=== PATIENT | male | born 1940 | race Caucasian/White ===

== ENCOUNTER 2016-03-03 13:52 | Emergency (ER) | payer BC ==
[~2016-03-03] VITALS: Ht 182.9 cm; Wt 95.3 kg
[~2016-03-03 13:52] MED LIST changes: -AMLO-110 PO; -FERROUS SULFATE PO; -FLM4 PO; -FLV1 PO; -LVMI SC; -NIZA150C3 PO; -RAMI10CA PO; -SERT50TA PO
[2016-03-03 13:57] VITALS: TEMP 36.4; Ht 182.9 cm; Wt 95.3 kg
[2016-03-03] MEDS ORDERED: NIZA150C3 PO (14:35)
[2016-03-03] MEDS ORDERED: RAMI10CA PO (14:35)
[2016-03-03] MEDS ORDERED: FERROUS SULFATE PO (14:35)
[2016-03-03] MEDS ORDERED: AMLO-110 PO (14:35)
[2016-03-03] MEDS ORDERED: LVMI SC (14:35)
[2016-03-03] MEDS ORDERED: FLV1 PO (14:35)
[2016-03-03] MEDS ORDERED: SERT50TA PO (14:35)
[2016-03-03] MEDS ORDERED: SODIUM CHLORIDE 0.9% 1000ML 1,000 ML IV STA (15:09)
--- NOTE | 2016-03-03 15:15 | EMERGENCY ROOM VISIT NOTE ---
History Report prepared by Fina: Christina Rodriguez Under the Supervision of: Dr. Deirdre Vanegas M.D. First contact with patient: 14:45 Chief Complaint: GI ASSESSMENT Stated Complaint: BLOOD IN STOOL Nursing Triage Summary: Dr. Delatorre sent patient. Blood in stool since 3 days. Denies any other symptoms. History of Present Illness The patient is a 75 year old male who presents to the Emergency Room with complaints of persistent hematochezia that began three days ago. The patient states that he is noticing blood in his stool in the toilet after a bowel movement. He denies any abdominal pain or rectal bleeding without the bowel movements. The patient states that he has had this happen in the past, noting that he had polyps taken out. He states that he is on Pradaxa for atrial fibrillation, but states that he stopped taking it three days ago when he noticed the bleeding. The patient states that he had blood work done that was ordered by his PCP. He states that he was instructed to come to the emergency department for further work up and care. The patient denies any recent blood transfusions. He states that he has a history of diabetes and states that he had a pacemaker placed in January. Source of History: patient Onset: three days ago Position: other (global) Quality: other (hematochezia) Timing: other (persistent) Associated Symptoms: + abdominal pain Review of Systems See HPI for pertinent positives & negatives. A total of 10 systems reviewed and were otherwise negative. Past Medical & Surgical Medical Problems: (1) Atrial fibrillation (2) Diabetes (3) Sick sinus syndrome due to SA node dysfunction Family History Diabetes mellitus Heart disease Hypertension Social History Smoking Status: Never Smoker Smokeless Tobacco Use: No Alcohol Use: none Marital Status: Housing Status: lives alone Occupation Status: retired Current/Historical Medications Scheduled Amlodipine (Norvasc), 5 MG PO QAM Aspirin (Aspirin Ec), 81 MG PO DAILY Atorvastatin (Lipitor), 1 TAB PO HS Dabigatran Etexilate Mesylate (Pradaxa), 1 CAP PO BID Folic Acid (Folic Acid), 1 TAB PO QAM Insulin Detemir (Levemir), Unknown Dose SC TIDM Nizatidine (Nizatidine), 1 CAP PO BID Pantoprazole (Protonix), 40 MG PO DAILY Potassium Chloride (Micro-K Ext Rel), 10 MEQ PO DAILY Ramipril (Ramipril), 1 CAP PO QAM Sertraline (Zoloft), 50 MG PO QAM Tamsulosin HCl (Tamsulosin HCl), 0.4 MG PO DAILY Triamterene/Hctz (Dyazide 37.5MG/25MG), 1 CAP PO DAILY [Ferrous Sulfate], 28 MG PO QAM Allergies Coded Allergies: No Known Allergies (Unverified , 01/06/16) Physical Exam Vital Signs Date Time Temp Pulse Resp B/P Pulse Ox O2 Delivery O2 Flow Rate FiO2 03/03/16 17:11 65 18 116/52 98 03/03/16 15:59 68 20 121/57 98 Room Air 03/03/16 15:35 62 03/03/16 13:57 36.4 77 19 102/65 100 Room Air Physical Exam Vital signs reviewed. General: Elderly, Well-appearing male, in no significant distress. HEENT: No scleral icterus, PERRLA, neck supple. Poor dentition. Atraumatic. Cardiovascular: Regular rate and rhythm, no extra sounds. Pulmonary: Clear to auscultation bilaterally, normal work of breathing. Abdomen: Soft, nontender, nondistended, positive bowel sounds. Rectal: Normal rectal mucosa, guaiac positive melanotic stools. Musculoskeletal: Atraumatic, no peripheral edema. Neurologic: Patient awake alert and oriented x 3, full strength in all 4 extremities. Cranial nerves 2 through 12 grossly intact. Skin: Warm, dry, no rash Medical Decision & Procedures Laboratory Results 03/03/16 15:00 Red Blood Count 3.94, Mean Corpuscular Volume 90.9, Mean Corpuscular Hemoglobin 29.9, Mean Corpuscular Hemoglobin Concent 33.0, Mean Platelet Volume 10.3, Neutrophils (%) (Auto) 74.9, Lymphocytes (%) (Auto) 15.3, Monocytes (%) (Auto) 7.1, Eosinophils (%) (Auto) 1.7, Basophils (%) (Auto) 0.7, Neutrophils # (Auto) 5.18, Lymphocytes # (Auto) 1.06, Monocytes # (Auto) 0.49, Eosinophils # (Auto) 0.12, Basophils # (Auto) 0.05 03/03/16 15:00 Test 03/03/16 15:00 1/19/17 15:25 White Blood Count 6.92 K/uL (4.8-10.8) Red Blood Count 3.94 M/uL (4.7-6.1) Hemoglobin 11.8 g/dL (14.0-18.0) Hematocrit 35.8 % (42-52) Mean Corpuscular Volume 90.9 fL (80-100) Mean Corpuscular Hemoglobin 29.9 pg (25-34) Mean Corpuscular Hemoglobin Concent 33.0 g/dl (32-36) Platelet Count 237 K/uL (130-400) Mean Platelet Volume 10.3 fL (7.4-10.4) Neutrophils (%) (Auto) 74.9 % Lymphocytes (%) (Auto) 15.3 % Monocytes (%) (Auto) 7.1 % Eosinophils (%) (Auto) 1.7 % Basophils (%) (Auto) 0.7 % Neutrophils # (Auto) 5.18 K/uL (1.4-6.5) Lymphocytes # (Auto) 1.06 K/uL (1.2-3.4) Monocytes # (Auto) 0.49 K/uL (0.11-0.59) Eosinophils # (Auto) 0.12 K/uL (0-0.5) Basophils # (Auto) 0.05 K/uL (0-0.2) RDW Standard Deviation 47.7 fL (36.4-46.3) RDW Coefficient of Variation 14.5 % (11.5-14.5) Immature Granulocyte % (Auto) 0.3 % Immature Granulocyte # (Auto) 0.02 K/uL (0.00-0.02) Anion Gap 10.0 mmol/L (3-11) Est Creatinine Clear Calc Drug Dose 41.8 ml/min Estimated GFR () 41.4 Estimated GFR (Non- 35.8 BUN/Creatinine Ratio 20.3 (10-20) Calcium Level 8.3 mg/dl (8.5-10.1) Total Bilirubin 0.5 mg/dl (0.2-1) Direct Bilirubin 0.1 mg/dl (0-0.2) Aspartate Amino Transf (AST/SGOT) 25 U/L (15-37) Alanine Aminotransferase (ALT/SGPT) 29 U/L (12-78) Alkaline Phosphatase 73 U/L (45-117) Total Protein 7.5 gm/dl (6.4-8.2) Albumin 3.9 gm/dl (3.4-5.0) Urine Color YELLOW Urine Appearance CLEAR (CLEAR) Urine pH 7.0 (4.5-7.5) Urine Specific [place] 1.017 (1.000-1.030) Urine Protein NEG (NEG) Urine Glucose (UA) NEG (NEG) Urine Ketones NEG (NEG) Urine Occult Blood NEG (NEG) Urine Nitrite NEG (NEG) Urine Bilirubin NEG (NEG) Urine Urobilinogen NEG (NEG) Urine Leukocyte Esterase NEG (NEG) Laboratory results per my review. Medications Administered Medications (Trade) Dose Ordered Sig/Arlene Route Start Time Stop Time Status Last Admin Dose Admin Sodium Chloride 1,000 ml @ 125 mls/hr Q8H STAT IV 03/03/16 15:09 03/03/16 17:55 DC 03/03/16 15:36 125 MLS/HR Pantoprazole Sodium/Dextrose (Protonix Inj/D5 100ml) 120 ml @ 400 mls/hr NOW IV 03/03/16 15:30 03/03/16 17:55 DC 03/03/16 16:31 400 MLS/HR ECG Indication: other (GI Bleed) Rate (beats per minute): 62 Rhythm: other (atrial sensed, ventricular paced) Findings: PAC, other (prolonged AV conduction) ED Course 1506: Past medical records reviewed. The patient was evaluated in room B3B. A complete history and physical examination was performed. 1509: Ordered Sodium Chloride 1000 ml @ 125 mls/hr IV. 1530: Ordered Pantoprazole Sodium 80 mg/Dextrose 120 ml @ 80 mg/Dextrose IV. 1625: I reevaluated the patient and he is resting comfortably. I discussed the exam findings with him. He states that he would like to go home. I am going to consult Dr. Delatorre. 1654: I discussed the patients case with Dr. Delatorre, Primary Care. He is going to contact the patient for further follow up as an outpatient. 1645: Upon reevaluation, the patient appeared to have improvement of his symptoms. I discussed findings with him. He verbalized agreement of the treatment plan. He was discharged home. Medical Decision Differential diagnosis: Etiologies such as diverticulosis, AVM, coagulopathy, colitis, inflammatory bowel disease, malignancy, Rhiannon-Jarrell tear, esophagitis, peptic ulcer disease , variceal bleed, gastritis, epistaxis, fissure, hemorrhoids, as well as others were entertained. This pt was evaluated and appeared to be in no distress. IV access was obtained and lab work was drawn. 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 Rectal exam is + for melanotic guaiac positive stool. Pt H/H is stable. Med list review indicates the pt is on plavix and asa for heart dx. He stopped his plavix several days ago when he noticed the bleeding. Pt was given IV protonix and offered admission. Pt has declined admission. I discussed the case with Dr Delatorre, pt's PCP, who will arrange for lose follow up tomorrow. Pt agreed with the plan. He will stop plavix and aspirin. Impression Primary Impression: Upper GI bleed Additional Impressions: Encounter for aspirin therapy On anticoagulant therapy Scribe Attestation The scribe's documentation has been prepared under my direction and personally reviewed by me in its entirety. I confirm that the note above accurately reflects all work, treatment, procedures, and medical decision making performed by me. Departure Information Dispostion Home / Self-Care Referrals Iron Delatorre D.O.Int.Med. (PCP) Forms HOME CARE DOCUMENTATION FORM, IMPORTANT VISIT INFORMATION Patient Instructions My [facility] Additional Instructions Diagnosis: Upper GI bleed Stop aspirin therapy. Do not take Pradaxa. Drink plenty of clear fluids. Dr. Delatorre's office will contact you for follow-up tomorrow. Return to the emergency department for more significant bleeding, dizziness, abdominal pain or any medical concerns. Problem Qualifiers
[2016-03-03 15:27] LABS: BASO % 0.7 %; BASO ABS # 0.05 K/uL (0-0.2); COMPLETE YES; EOS % 1.7 %; HEMATOCRIT 35.8 % (42-52); IG% 0.3 %; LYMPH % 15.3 %; LYMPH ABS # 1.06 K/uL (1.2-3.4); MEAN CELL VOLUME 90.9 fL (80-100); MEAN CORPUSCULAR HEMOGLOBIN 29.9 pg (25-34); MEAN PLATELET VOLUME 10.3 fL (7.4-10.4); MONO % 7.1 %; NEUT % 74.9 %; PLATELET COUNT 237 K/uL (130-400); RED BLOOD COUNT 3.94 M/uL (4.7-6.1); WHITE BLOOD COUNT 6.92 K/uL (4.8-10.8)
[2016-03-03] MEDS ORDERED: PANTOprazole INJ 80 MG in DEXTROSE 5% 100ML 100 ML IV SCH (15:30)
[2016-03-03] MEDS ORDERED: FLM4 PO (15:38)
[2016-03-03 16:06] LABS: BUN/CREATININE RATIO 20.3 (10-20); CALCIUM 8.3 mg/dl (8.5-10.1); CREATININE 1.8 mg/dl (0.60-1.40); POTASSIUM 3.6 mmol/L (3.5-5.1)
[2016-03-03 16:10] LABS: URINE APPEARANCE CLEAR (CLEAR); URINE COLOR YELLOW; URINE SPECIFIC GRAVITY 1.017 (1.000-1.030); ZZUR CULT IF INDIC CLEAN CATCH NO
[2016-03-03 16:11] LABS: URINE BILIRUBIN NEG (NEG); URINE NITRITE NEG (NEG); UROBILINOGEN NEG (NEG)
[2016-03-03 16:16] LABS: MANUAL MICROSCOPIC REQUIRED? NO; REVIEW REQ? NO
[2016-03-03 17:11] VITALS: BP 116/52; PULSE 65; O2SAT 98
== END 2016-03-03 17:13 | disposition home or self-care (01) ==
LOC: C.EDB 13:53 → C.EDC 17:13
DX: K92.2 Gastrointestinal hemorrhage, unspecified (principal); I48.91 Unspecified atrial fibrillation; E11.9 Type 2 diabetes mellitus without complications; I49.5 Sick sinus syndrome; Z79.82 Long term (current) use of aspirin; Z79.4 Long term (current) use of insulin; Z79.899 Other long term (current) drug therapy; Z83.3 Family history of diabetes mellitus; Z82.49 Family history of ischemic heart disease and other diseases of the circulatory system; K92.1 Melena; Z51.81 Encounter for therapeutic drug level monitoring; Z79.01 Long term (current) use of anticoagulants

== ENCOUNTER → 2016-03-03 | Outpatient (CLI) | payer BC ==
[~2016-03-03] MED LIST: AMLO-110 PO; ASPI81TA28 PO; ATOR-24 PO; DABI150C PO; FERROUS SULFATE PO; FLM4 PO; FLV1 PO; LVMI SC; NIZA150C3 PO; PANT40TA PO; POTA10CA28 PO; RAMI10CA PO; SERT50TA PO; TRIA37.5 PO
[2016-03-03 12:42] LABS: BASO % 0.7 %; BASO ABS # 0.04 K/uL (0-0.2); COMPLETE YES; EOS % 2.6 %; HEMATOCRIT 31.3 % (42-52); IG% 0.2 %; LYMPH % 20.6 %; LYMPH ABS # 1.17 K/uL (1.2-3.4); MEAN CELL VOLUME 91.8 fL (80-100); MEAN CORPUSCULAR HEMOGLOBIN 30.5 pg (25-34); MEAN CORPUSCULAR HGB CONC 33.2 g/dl (32-36); MEAN PLATELET VOLUME 10.9 fL (7.4-10.4); NEUT % 66.9 %; PLATELET COUNT 206 K/uL (130-400); RED BLOOD COUNT 3.41 M/uL (4.7-6.1); WHITE BLOOD COUNT 5.69 K/uL (4.8-10.8)
== END | disposition home or self-care (01) ==
LOC: C.LABPVFM 10:23
PROVIDERS: ATTEND Family Medicine
DX: K92.1 Melena (principal); Z51.81 Encounter for therapeutic drug level monitoring; Z79.01 Long term (current) use of anticoagulants

== ENCOUNTER → 2016-03-04 | Outpatient (CLI) | payer BC ==
[~2016-03-04] MED LIST changes: +AMLO-110 PO; +FERROUS SULFATE PO; +FLM4 PO; +FLV1 PO; +LVMI SC; +NIZA150C3 PO; +RAMI10CA PO; +SERT50TA PO
[2016-03-04 17:36] LABS: BASO % 0.8 %; BASO ABS # 0.05 K/uL (0-0.2); COMPLETE YES; EOS % 1.4 %; HEMATOCRIT 32.4 % (42-52); IG% 0.5 %; LYMPH % 16.9 %; MEAN CELL VOLUME 92.3 fL (80-100); MEAN CORPUSCULAR HEMOGLOBIN 29.9 pg (25-34); MEAN CORPUSCULAR HGB CONC 32.4 g/dl (32-36); MEAN PLATELET VOLUME 10.8 fL (7.4-10.4); MONO % 8.6 %; NEUT % 71.8 %; PLATELET COUNT 225 K/uL (130-400); RED BLOOD COUNT 3.51 M/uL (4.7-6.1); WHITE BLOOD COUNT 5.91 K/uL (4.8-10.8)
== END | disposition home or self-care (01) ==
LOC: C.LABPVFM 13:08
PROVIDERS: ATTEND Family Medicine
DX: K92.2 Gastrointestinal hemorrhage, unspecified (principal)

== ENCOUNTER → 2016-03-09 | Outpatient (CLI) | payer BC ==
--- NOTE | 2016-03-09 12:53 | DIAGNOSTIC IMAGING REPORT ---
RENAL ULTRASOUND HISTORY: R31.29 Hematuria, microscopic latex [id number] COMPARISON: None. FINDINGS: Right kidney: 11.2 cm. No hydronephrosis. Multiple simple cysts with the largest in the upper pole measuring 4.2 cm. Left kidney: 12.1 cm. No hydronephrosis. Multiple simple cysts with the largest measuring 4.4 cm at the interpolar region. There is also a complex cyst/lesion within the upper pole measuring 3.3 x 3.0 cm. Bladder: No bladder wall thickening. The bilateral ureteral jets were identified. IMPRESSION: 1. Multiple bilateral simple cysts. There is also a complex cyst/lesion within the upper pole of the left kidney measuring 3.3 x 3.[address] or renal MRI should be performed to exclude the possibility of a renal mass. 2. No hydronephrosis. 3. Normal bladder. Electronically signed by: Doug Joya M.D. 03/09/2016 12:51 PM Dictated Date/Time: 03/09/2016 12:45 PM
== END | disposition home or self-care (01) ==
LOC: C.ULTR 11:29
PROVIDERS: ATTEND Urology
DX: R31.29 Other microscopic hematuria (principal); N28.1 Cyst of kidney, acquired

== ENCOUNTER → 2016-03-11 | Day surgery (SDC) | payer BC ==
[2016-03-10 15:44] VITALS: BMI 28.0
[~2016-03-11] VITALS: Ht 182.9 cm; Wt 95.5 kg
[~2016-03-11] MED LIST changes: +EpHEDrine SULFATE 50MG/5ML SYR ONE; +LIDOCAINE HCL 2% 2 ML VIAL (20MG/ML) ONE; +PROPOFOL IV EMULSION 10 MG/ML 20 ML VIAL IV ONE; +SODIUM CHLORIDE 0.9% 500ML 500 ML IV ONE
[2016-03-11 07:37] VITALS: Ht 182.9 cm; Wt 95.5 kg
--- NOTE | 2016-03-11 08:02 | Endo History and Physical ---
History & Physical Date of Service: Mar 11, 2016. Chief Complaint: ANEMIA RECTAL BLEEDING Referring Physician: DR. EVAN NGUYEN History of Present Illness 75 yo CM who presents for EGD secondary to anemia and rectal bleeding. He was initially scheduled for both a colonoscopy and EGD, however, he chose to not take his bowel prep, and therefore will only undergo EGD. Past Medical History Atrial Fibrillation, Diabetes, Arthritis, Reflux, High Cholesterol, Syncopal Episodes, Hypertension Past Surgical History Hx Cardiac Surgery: Yes (HEART CATH, CABG, [employer] PACEMAKER) Hx Abdominal Surgery: Yes (COLON RESECTION) Hx Post-Op Nausea and Vomiting: No Hx Cancer Surgery: No Hx Thoracic Surgery: No Hx Orthopedic: No Hx Urinary Tract Surgery: No Family History None Social History Smoking Status: Never Smoker Hx Substance Use: No Hx Alcohol Use: No Allergies Coded Allergies: No Known Allergies (Unverified , 03/11/16) Current Medications Reported Home Medications Medications Dose Route/Sig Max Daily Dose Days Date Category Dose Instructions Tamsulosin HCl 0.4 Mg Cap 0.4 Mg PO HS 03/03/16 Reported Micro-K Ext Rel (Potassium Chloride) 10 Meq Capcr 10 Meq PO QAM 01/06/16 Reported Protonix (Pantoprazole Sodium) 40 Mg Tab 40 Mg PO QAM 01/06/16 Reported Dyazide 37.5MG/25MG (Triamterene/HCTZ) Cap 1 Cap PO QAM 30 01/06/16 Reported Lipitor (Atorvastatin Calcium) 40 Mg Tab 1 Tab PO HS 90 01/06/16 Reported Pradaxa (Dabigatran Etexilate Mesylate) 150 Mg Cap 1 Cap PO BID 90 01/06/16 Reported STOPPED 5 DAYS AGO Aspirin Ec (Aspirin) 81 Mg Tab 81 Mg PO DAILY 01/06/16 Reported PT STOPPED ON HIS OWN ONE MONTH AGO Zoloft (Sertraline HCl) 50 Mg Tab 50 Mg PO QAM 01/26/15 Reported Ramipril 10 Mg Cap 1 Cap PO QAM 01/26/15 Reported Nizatidine 150 Mg Cap 1 Cap PO BID 01/26/15 Reported [Ferrous Sulfate] 28 Mg PO QAM 01/26/15 Reported Folic Acid 1 Mg Tab 1 Tab PO QAM 01/26/15 Reported Levemir (Insulin Detemir) 100 Units/Ml Inj 14 Units SC TIDM 01/26/15 Reported Norvasc (Amlodipine Besylate) 5 Mg Tab 5 Mg PO QAM 01/26/15 Reported Vital Signs Weight (Kilograms): 95.45 Height (Feet): 6 Height (Inches): 0 Date Time Temp Pulse Resp B/P Pulse Ox O2 Delivery O2 Flow Rate FiO2 03/11/16 07:39 36.1 84 18 134/99 100 Room Air Physical Exam General Appearance: WD/WN, no apparent distress Respiratory/Chest: Auscultation: breath sounds normal Cardiovascular: Heart Auscultation: RRR Abdomen: Bowel Sounds: normal Inspection & Palpation: soft, non-distended, no tenderness, guarding & rebound Assessment and Plan Assessment: 75 yo CM who presents for EGD secondary to anemia and rectal bleeding. He was initially scheduled for both a colonoscopy and EGD, however, he chose to not take his bowel prep, and therefore will only undergo EGD. Plan: Proceed with EGD.
--- NOTE | 2016-03-11 08:16 | Discharge Instructions ---
Endoscopy Patient Instructions Date / Procedure(s) Performed Mar 11, 2016. Colonoscopy, EGD Allergy Information Coded Allergies: No Known Allergies (Unverified , 03/11/16) Discharge Date / Findings Mar 11, 2016. Gastritis Hiatal hernia Medication Instructions Stopped Medication(s): PRADAXA AND ASA Restart Stopped Medication(s): OK to restart Pradaxa and Aspirin therapy today as prescribed OK to resume all medications today as prescribed Reported Home Medications Medications Dose Route/Sig Max Daily Dose Days Date Category Dose Instructions Tamsulosin HCl 0.4 Mg Cap 0.4 Mg PO HS 03/03/16 Reported Micro-K Ext Rel (Potassium Chloride) 10 Meq Capcr 10 Meq PO QAM 01/06/16 Reported Protonix (Pantoprazole Sodium) 40 Mg Tab 40 Mg PO QAM 01/06/16 Reported Dyazide 37.5MG/25MG (Triamterene/HCTZ) Cap 1 Cap PO QAM 30 01/06/16 Reported Lipitor (Atorvastatin Calcium) 40 Mg Tab 1 Tab PO HS 90 01/06/16 Reported Pradaxa (Dabigatran Etexilate Mesylate) 150 Mg Cap 1 Cap PO BID 90 01/06/16 Reported STOPPED 5 DAYS AGO Aspirin Ec (Aspirin) 81 Mg Tab 81 Mg PO DAILY 01/06/16 Reported PT STOPPED ON HIS OWN ONE MONTH AGO Zoloft (Sertraline HCl) 50 Mg Tab 50 Mg PO QAM 01/26/15 Reported Ramipril 10 Mg Cap 1 Cap PO QAM 01/26/15 Reported Nizatidine 150 Mg Cap 1 Cap PO BID 01/26/15 Reported [Ferrous Sulfate] 28 Mg PO QAM 01/26/15 Reported Folic Acid 1 Mg Tab 1 Tab PO QAM 01/26/15 Reported Levemir (Insulin Detemir) 100 Units/Ml Inj 14 Units SC TIDM 01/26/15 Reported Norvasc (Amlodipine Besylate) 5 Mg Tab 5 Mg PO QAM 01/26/15 Reported Provider Instructions Activity Restrictions - No exercising or heavy lifting for 24 hours. - Do not drink alcohol the day of the procedure. - Do not drive a car or operate machinery until the day after the procedure. - Do not make any important decisions or sign important papers in 24 hours after the procedure. Following Day: - Return to full activity which may include returning to work/school. Diet Start your diet with liquids and light foods (jello, soup, juice, toast). Then eat your usual diet if not nauseated. Treatment For Common After Affects For mild abdominal pain, bloating, or excessive gas: - Rest - Eat lightly - Lie on right side Follow-Up Information Follow-up with DR. EVAN NGUYEN as scheduled Anesthesia Information What You Should Know You have had a procedure that required some medicine to reduce anxiety and discomfort. This treatment is called moderate sedation. After receiving the treatment, you may be sleepy, but you will be able to breathe on your own. The effects of the treatment may last for several hours. Follow these instructions along with Activity/Diet recommendations noted above: * Do NOT do anything where dizziness or clumsiness would be dangerous. * Rest quietly at home today, then you can be up and about tomorrow. * Have a responsible person stay with you the rest of today. * You may have had an I.V. today. If so, you may take the dressing off later today. Recommendations Call your doctor if: * Trouble breathing * Continuous vomiting for more than 24 hours * Temperature above 101 degrees * Severe abdominal pain or bloating * Pain not relieved by pain medicine ordered * There is increased drainage or redness from any incision * A large amount of rectal bleeding greater than 2-3 tablespoons. (If you had a polyp/s removed or have hemorrhoids, a small amount of blood - from the rectum is to be expected.) * You have any unanswered questions or concerns. IN THE EVENT OF A SERIOUS EMERGENCY, GO TO THE NEAREST EMERGENCY ROOM Your discharge instructions were prepared by provider David Man. Patient Instructions Signature Page Jeff Quigley Patient (or Guardian) Signature/Date: I have read and understand the instructions given to me by my caregivers. Caregiver/RN/Doctor Signature/Date: The above-named patient and/or guardian has received patient instructions on this date. + Original Patient Signature Page (only) stays with chart. Please make copy for patient.
--- NOTE | 2016-03-11 08:20 | GI REPORT ---
Procedure Date: 03/11/2016 7:58 AM Procedure: Upper GI endoscopy Indications: Iron deficiency anemia secondary to chronic blood loss Medicines: Monitored Anesthesia Care Complications: No immediate complications. Estimated Blood Loss: Estimated blood loss: none. Procedure: Pre-Anesthesia Assessment: - Prior to the procedure, a History and Physical was performed, and patient medications and allergies were reviewed. The patient's tolerance of previous anesthesia was also reviewed. The risks and benefits of the procedure and the sedation options and risks were discussed with the patient. All questions were answered, and informed consent was obtained. Prior Anticoagulants: The patient last took aspirin 14 days and Pradaxa (dabigatran) 5 days prior to the procedure. ASA Grade Assessment: III - A patient with severe systemic disease. After reviewing the risks and benefits, the patient was deemed in satisfactory condition to undergo the procedure. After obtaining informed consent, the endoscope was passed under direct vision. Throughout the procedure, the patient's blood pressure, pulse, and oxygen saturations were monitored continuously. The scope was introduced through the mouth, and advanced to the second part of duodenum. The upper GI endoscopy was accomplished without difficulty. The patient tolerated the procedure well. Findings: The esophagus was normal. A small hiatus hernia was present. Localized mild inflammation characterized by erythema was found in the gastric antrum. The examined duodenum was normal. Impression: - Normal esophagus. - Small hiatus hernia. - Gastritis. - Normal examined duodenum. - No specimens collected. Recommendation: - Resume previous diet. - Continue present medications. - Perform a colonoscopy at appointment to be scheduled. - Return to primary care physician as previously scheduled. David Man DO 03/11/2016 8:19:34 AM This report has been signed electronically. Note Initiated On: 03/11/2016 7:58 AM
[2016-03-11 08:49] VITALS: BP 132/72; PULSE 63; O2SAT 100
--- NOTE | 2016-03-11 08:56 | Anesthesiology Progress Note ---
Anesthesia Post Op Note Date & Time Mar 11, 2016 at 08:56 Vital Signs Pain Intensity: 0 Vital Signs Past 12 Hours Date Time Temp Pulse Resp B/P Pulse Ox O2 Delivery O2 Flow Rate FiO2 03/11/16 08:49 63 18 132/72 100 Room Air 03/11/16 08:34 63 18 126/66 99 Room Air 03/11/16 08:19 65 20 103/55 99 Room Air 03/11/16 07:39 36.1 84 18 134/99 100 Room Air Notes Mental Status: alert / awake / arousable, participated in evaluation Pt Amnestic to Procedure: Yes Nausea / Vomiting: adequately controlled Pain: adequately controlled Airway Patency, RR, SpO2: stable & adequate BP & HR: stable & adequate Hydration State: stable & adequate Anesthetic Complications: no major complications apparent
== END | disposition home or self-care (01) ==
LOC: C.GI 07:20
PROVIDERS: ATTEND Internal Medicine
DX: D50.0 Iron deficiency anemia secondary to blood loss (chronic) (principal); K29.70 Gastritis, unspecified, without bleeding; K44.9 Diaphragmatic hernia without obstruction or gangrene